=== PATIENT | female | born 1980 | race Caucasian/White ===

== ENCOUNTER 2023-06-14 13:30 | Emergency (ER) | payer OTHER ==
[2023-06-14 13:42] VITALS: BP 136/73; PULSE 67; RESP 18; TEMP 98.4; BMI 46.6
[2023-06-14] MEDS ORDERED: ACETAMINOPHEN 1000 MG/100 ML BAG IVPB ONE (14:36)
[2023-06-14] MEDS ORDERED: SODIUM CHLORIDE 0.9% 500 ML INFUS.BAG IV ONE (14:36)
[2023-06-14] MEDS ORDERED: ACETAMINOPHEN INJECTION 100 ML IVPB ONE (15:26)
[2023-06-14] MEDS ORDERED: ONDANSETRON 4 MG/2 ML VIAL ONE (15:26)
[2023-06-14] MEDS: ONDANSETRON 4 MG/2 ML VIAL IVPUSH ONE ×2 (16:04→16:06)
[2023-06-14 16:08] LABS: BASO % 0.4 % (0-2.0); EOS % 1.7 % (0-4.5); HEMATOCRIT 37.4 % (32.4-45.2); HEMOGLOBIN 12.2 GM/dL (10.7-15.3); LYMPH % 28.8 % (8-40); MCH 27.8 pg (25.7-33.7); MCHC 32.6 g/dl (32.0-36.0); MEAN CELL VOLUME 85.1 fl (80-96); MEAN PLT VOLUME 7.3 fl (7.5-11.1); NEUT % 62.1 % (42.8-82.8); PLATELET COUNT 286 10^3/uL (134-434); RDW 13.1 % (11.6-15.6)
[2023-06-14 16:26] LABS: POTASSIUM 4.1 mmol/L (3.5-5.1)
[2023-06-14 16:29] LABS: ALBUMIN 3.5 g/dl (3.4-5.0); BLOOD UREA NITROGEN 12.9 mg/dL (7-18); MAGNESIUM 1.9 mg/dL (1.8-2.4)
[2023-06-14 16:32] LABS: CREATININE 0.7 mg/dL (0.55-1.3); PHOSPHOROUS 3.2 mg/dL (2.5-4.9)
[2023-06-14 16:33] LABS: BILIRUBIN,TOTAL 0.4 mg/dL (0.2-1); TOT PROT 7.2 g/dl (6.4-8.2)
== END 2023-06-14 18:39 | disposition home or self-care (01) ==
LOC: JER 13:30
PROC: 3E033NZ Introduction of Analgesics, Hypnotics, Sedatives into Peripheral Vein, Percutaneous Approach (ICD-10-PCS; principal; 2023-06-14)
DX: R55 Syncope and collapse (principal); R42 Dizziness and giddiness; H53.8 Other visual disturbances; R20.2 Paresthesia of skin; R11.0 Nausea; M54.2 Cervicalgia; S16.1XXA Strain of muscle, fascia and tendon at neck level, initial encounter; R53.1 Weakness; R51.9 Headache, unspecified; M25.562 Pain in left knee; R06.2 Wheezing; X58.XXXA Exposure to other specified factors, initial encounter
CPT/HCPCS: 36415; 70450-TC; 71046-TC-FY; 72125-TC; 73562-TC-LT-FY; 80053; 83735; 84100; 84443; 84484; 84703; 85025; 93005; 93010; 99285-25